=== PATIENT | female | born 1990 | race Caucasian/White ===

== ENCOUNTER 2024-04-06 18:38 | Emergency (ER) | payer SELFPAY ==
[~2024-04-06] VITALS: Ht 160 cm; Wt 91.0 kg
[2024-04-06 18:51] VITALS: BP 125/84; RESP 18; TEMP 98.1; O2SAT 99
[2024-04-06 18:57] VITALS: PULSE 88
== END 2024-04-06 19:05 | disposition home or self-care (01) ==
LOC: ER 18:38
DX: F10.229 Alcohol dependence with intoxication, unspecified (principal); F41.9 Anxiety disorder, unspecified; R56.9 Unspecified convulsions; Y90.9 Presence of alcohol in blood, level not specified
CPT/HCPCS: 99283